=== PATIENT | female | born 1995 | race Caucasian/White ===

== ENCOUNTER → 2017-11-05 | Outpatient (CLI) | payer MEDICAID ==
[~2017-11-05] MED LIST: ERYTHROMYC3.5 GM/TUB OP; METOPROLOL25 MG PO; NAPROSYN500 MG PO; NOMEDS XX; PRENATAL MULTI1 EAC5 PO; PRENATAL PLUS1 TA1 PO
== END ==
LOC: LAB 17:03
DX: Z34.80 Encounter for supervision of other normal pregnancy, unspecified trimester (principal)